=== PATIENT | male | born 1945 | race Caucasian/White ===

== ENCOUNTER → 2024-09-28 13:13 | Outpatient (REF) | payer OTHER, SELFPAY | LOC: RAD 13:13 | PROVIDERS: ATTENDING PHYSICIAN Physician Assistant Medical | DX: Z77.090 Contact with and (suspected) exposure to asbestos (principal); M79.622 Pain in left upper arm | CPT/HCPCS: 71046; 73030 ==

== ENCOUNTER 2025-02-14 17:00 | Emergency (ER) | payer OTHER, SELFPAY ==
[2025-02-14 17:09] VITALS: BP 159/87
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
== END 2025-02-14 19:05 | disposition home or self-care (01) ==
LOC: EMR 17:00
PROVIDERS: EMERGENCY PHYSICIAN Emergency Medicine
DX: S50.12XA Contusion of left forearm, initial encounter (principal); X58.XXXA Exposure to other specified factors, initial encounter; I25.10 Atherosclerotic heart disease of native coronary artery without angina pectoris; I10 Essential (primary) hypertension; E78.00 Pure hypercholesterolemia, unspecified; F17.200 Nicotine dependence, unspecified, uncomplicated
CPT/HCPCS: 99283; 73090; 73130

== ENCOUNTER 2025-02-15 21:06 | Emergency (ER) | payer OTHER, SELFPAY ==
[2025-02-15 21:08] VITALS: BP 139/78
[2025-02-15 21:37] VITALS: BMI 30.9
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
== END 2025-02-15 22:10 | disposition home or self-care (01) ==
LOC: EMR 21:06
PROVIDERS: EMERGENCY PHYSICIAN Emergency Medicine; FAMILY PHYSICIAN Physician Assistant Medical
DX: S60.222A Contusion of left hand, initial encounter (principal); Y04.0XXA Assault by unarmed brawl or fight, initial encounter; I25.10 Atherosclerotic heart disease of native coronary artery without angina pectoris; I10 Essential (primary) hypertension; E78.00 Pure hypercholesterolemia, unspecified; F17.200 Nicotine dependence, unspecified, uncomplicated
CPT/HCPCS: 99282

== ENCOUNTER → 2025-03-01 08:09 | Outpatient (REF) | payer OTHER, SELFPAY | LOC: RCS 08:09 | PROVIDERS: ATTENDING PHYSICIAN Internal Medicine | DX: I25.10 Atherosclerotic heart disease of native coronary artery without angina pectoris (principal); I35.0 Nonrheumatic aortic (valve) stenosis | CPT/HCPCS: 93306 ==

== ENCOUNTER → 2025-03-01 12:32 | Outpatient (REF) | payer OTHER, SELFPAY | LOC: WOUND 12:32 | PROVIDERS: ATTENDING PHYSICIAN Surgery | DX: S61.401A Unspecified open wound of right hand, initial encounter (principal); S60.222A Contusion of left hand, initial encounter; N18.31 Chronic kidney disease, stage 3a; I10 Essential (primary) hypertension; I25.10 Atherosclerotic heart disease of native coronary artery without angina pectoris; X58.XXXA Exposure to other specified factors, initial encounter | CPT/HCPCS: 99203 ==

== ENCOUNTER 2025-03-12 06:15 | Day surgery (SDC) | payer OTHER, SELFPAY ==
[2025-03-12] VITALS (10 sets, daily range): BP systolic 145–171; BP diastolic 0–90; BMI 30.2
[2025-03-12] MEDS: TYLENOL 1000 MG PO (08:54)
[2025-03-12] MEDS: CELEBREX 200 MG PO (08:54)
[2025-03-12] MEDS: NORMOSOL-R/PLASMALYTE-A 1000 IV (08:54)
[2025-03-12] MEDS: VANCOCIN 530 MG IV (09:58)
[2025-03-12] MEDS: MORPHINE SULFATE 1 MG IV (12:17)
== END 2025-03-12 13:25 | disposition home or self-care (01) ==
LOC: SDS 06:15
PROVIDERS: ATTENDING PHYSICIAN Orthopaedic Surgery
DX: S61.412A Laceration without foreign body of left hand, initial encounter (principal); S60.222A Contusion of left hand, initial encounter; X58.XXXA Exposure to other specified factors, initial encounter; I96 Gangrene, not elsewhere classified
CPT/HCPCS: 14040; 13131

== ENCOUNTER → 2025-07-08 10:50 | Outpatient (REF) | payer OTHER, SELFPAY | LOC: RAD 10:50 | PROVIDERS: ATTENDING PHYSICIAN Physician Assistant Medical | DX: K59.09 Other constipation (principal) | CPT/HCPCS: 74019 ==

== ENCOUNTER → 2025-10-08 13:49 | Outpatient (REF) | payer OTHER, SELFPAY | LOC: RAD 13:49 | PROVIDERS: ATTENDING PHYSICIAN Internal Medicine Nephrology; FAMILY PHYSICIAN Physician Assistant Medical | DX: N18.31 Chronic kidney disease, stage 3a (principal) | CPT/HCPCS: 76770 ==

== ENCOUNTER → 2025-11-05 12:05 | Outpatient (REF) | payer OTHER, SELFPAY | LOC: RAD 12:05 | PROVIDERS: ATTENDING PHYSICIAN Physician Assistant | DX: M25.571 Pain in right ankle and joints of right foot (principal) | CPT/HCPCS: 73610 ==